=== PATIENT | female | born 1975 | race Caucasian/White ===

== ENCOUNTER 2017-06-08 17:55 | Emergency (ER) | payer SELFPAY ==
[~2017-06-08] VITALS: Ht 172.7 cm; Wt 65.3 kg
[2017-06-08 17:58] VITALS: TEMP 37; Ht 172.7 cm; Wt 65.3 kg
[2017-06-08] MEDS ORDERED: ONDANSETRON INJ 2 MG/ML 2 ML VIAL IV STA (18:24)
[2017-06-08] MEDS ORDERED: SODIUM CHLORIDE 0.9% 1000ML 1,000 ML IV STA (18:24)
--- NOTE | 2017-06-08 18:39 | EMERGENCY ROOM VISIT NOTE ---
History First contact with patient: 18:09 Chief Complaint: VOMITING Stated Complaint: VOMITING/LETHARGIC History of Present Illness The patient is a 41 year old female who presents to the Emergency Room with complaints of lethargy, nausea, vomiting 2 days. The symptoms seem to worsen first thing in the morning, and improves throughout the day. The patient states 2 days ago, she awoke and was getting ready for work, when at approximately 7 AM, she began experiencing nausea with vomiting. The patient states as the day went on, she was feeling better. Yesterday, she began experiencing the same symptoms. This morning, she awoke and was nauseated with vomiting again, that an approximately 11 AM the symptoms improved. She states she has been feeling extremely fatigued, and does have muscle and body aches. The patient has been trying Pepto-Bismol, Dramamine, Tums, and Tylenol for her symptoms. She states it feels like there is a knot in her stomach, but denies any abdominal pain. The patient has had normal bowel movements, denies constipation or diarrhea. She has had no urinary symptoms. The patient states her last menstrual cycle began on Sunday, and she is still bleeding. She does not believe that she could be , but is sexually active and is not on any control. The patient reports chills and a subjective fever yesterday. She denies any cough, wheezing, chest pain, upper respiratory infection symptoms, chest congestion, dyspnea. She states her symptoms do seem to be improving over the past 2 days. Review of Systems A complete 10 point review of systems was reviewed with the patient with pertinent positives and negatives as per history of present illness. All else were negative. Past Medical/Surgical History Medical Problems: (1) No Known Active Medical Problems Social History Smoking Status: Current Every Day Smoker Marital Status: single Occupation Status: employed Current/Historical Medications Scheduled Ondasetron Odt (Zofran Odt), 4 MG SL Q6H Physical Exam Vital Signs Date Time Temp Pulse Resp B/P (MAP) Pulse Ox O2 Delivery O2 Flow Rate FiO2 06/08/17 20:08 77 18 138/68 98 06/08/17 17:58 37.0 89 16 137/99 96 Room Air Physical Exam VITALS: Vitals are noted on the nurse's note and reviewed by myself. Vital signs stable. GENERAL: This is a 41-year-old white female, ill-appearing, but nontoxic, in no acute distress, nondiaphoretic, well-developed well-nourished. SKIN: The skin was without rashes, erythema, edema, or bruising. There is no tenting of the skin. Capillary reflex less than 2 seconds. HEAD: Normocephalic atraumatic. EARS: External auditory canals clear, tympanic membranes pearly tate without erythema or effusion bilaterally. EYES: Pupils equal round and reactive to light and accommodation. Conjunctivae without injection, sclerae without icterus. Extraocular movements intact. NOSE: Patent, turbinates without inflammation or discharge. No sinus tenderness. MOUTH: Mucous membranes moist. Tonsils are not enlarged. Pharynx without erythema or exudate. Uvula midline. Airway patent. Tongue does not deviate. NECK: Supple without nuchal rigidity. No lymphadenopathy. No thyromegaly. Cervical spine is nontender. No JVD. HEART: Regular rate and rhythm without murmurs gallops or rubs. LUNGS: Clear to auscultation bilaterally without wheezes, rales or rhonchi. No dullness to percussion. No retractions or accessory muscle use. ABDOMEN: Positive bowel sounds x 4. Normal tympanic percussion. Soft, nontender, without masses or organomegaly. Hyman sign negative. No guarding or rebound tenderness. MUSCULOSKELETAL: No muscle atrophy, erythema, or edema noted. Full range of motion without joint tenderness in all extremities. No tenderness to palpation. Normal gait. Strength 5/5 throughout. NEURO: Patient was alert and oriented to person place and time. Normal sensation to light and sharp touch. Deep tendon reflexes 2+ throughout. No focal neurological deficits. Medical Decision & Procedures ER Provider Diagnostic Interpretation: Urinalysis is positive for only blood. The patient is currently on her menstrual cycle. Urine test negative. CBC was without leukocytosis, anemia, thrombocytopenia. ER he was without significant renal or electrolyte abnormalities. The patient' s potassium was low at 2.9. Laboratory Results 06/08/17 18:39 Red Blood Count 4.12, Mean Corpuscular Volume 95.1, Mean Corpuscular Hemoglobin 34.2, Mean Corpuscular Hemoglobin Concent 36.0, Mean Platelet Volume 10.0, Neutrophils (%) (Auto) 48.3, Lymphocytes (%) (Auto) 44.8, Monocytes (%) (Auto) 6.6, Eosinophils (%) (Auto) 0.1, Basophils (%) (Auto) 0.1, Neutrophils # (Auto) 3.82, Lymphocytes # (Auto) 3.54, Monocytes # (Auto) 0.52, Eosinophils # (Auto) 0.01, Basophils # (Auto) 0.01 06/08/17 18:39 Test 06/08/17 18:39 White Blood Count 7.91 K/uL (4.8-10.8) Red Blood Count 4.12 M/uL (4.2-5.4) Hemoglobin 14.1 g/dL (12.0-16.0) Hematocrit 39.2 % (37-47) Mean Corpuscular Volume 95.1 fL (80-100) Mean Corpuscular Hemoglobin 34.2 pg (25-34) Mean Corpuscular Hemoglobin Concent 36.0 g/dl (32-36) Platelet Count 213 K/uL (130-400) Mean Platelet Volume 10.0 fL (7.4-10.4) Neutrophils (%) (Auto) 48.3 % Lymphocytes (%) (Auto) 44.8 % Monocytes (%) (Auto) 6.6 % Eosinophils (%) (Auto) 0.1 % Basophils (%) (Auto) 0.1 % Neutrophils # (Auto) 3.82 K/uL (1.4-6.5) Lymphocytes # (Auto) 3.54 K/uL (1.2-3.4) Monocytes # (Auto) 0.52 K/uL (0.11-0.59) Eosinophils # (Auto) 0.01 K/uL (0-0.5) Basophils # (Auto) 0.01 K/uL (0-0.2) RDW Standard Deviation 43.8 fL (36.4-46.3) RDW Coefficient of Variation 12.7 % (11.5-14.5) Immature Granulocyte % (Auto) 0.1 % Immature Granulocyte # (Auto) 0.01 K/uL (0.00-0.02) Anion Gap 5.0 mmol/L (3-11) Est Creatinine Clear Calc Drug Dose 147.9 ml/min Estimated GFR () 139.4 Estimated GFR (Non- 120.3 BUN/Creatinine Ratio 15.0 (10-20) Calcium Level 8.7 mg/dl (8.5-10.1) Medications Administered Medications (Trade) Dose Ordered Sig/Kurt Route Start Time Stop Time Status Last Admin Dose Admin Sodium Chloride 1,000 ml @ 999 mls/hr Q1H1M STAT IV 06/08/17 18:24 06/08/17 19:24 DC 06/08/17 18:48 999 MLS/HR Ondansetron HCl (Zofran Inj) 4 mg NOW STAT IV 06/08/17 18:24 06/08/17 18:26 DC 06/08/17 18:49 4 MG ED Course The patient was seen and evaluated as above. IV access obtained, labs drawn. The patient was given 1 L normal saline solution and 4 mg Zofran. The patient was reassessed. She was feeling better. Discharge instructions reviewed, and the patient was discharged home in good condition. Medical Decision This is a 41-year-old female patient who presents to the emergency department today complaining of vomiting, lethargy, and nausea for the past 2 days. The patient's states several of his coworkers are ill with similar symptoms. The patient states symptoms seem to be staying the same or not improving over the past 2 days. She denies chance of , however she is sexually active and does not use control. Labs were unrevealing for acute process, and test was negative. Urinalysis was positive for blood, however the patient is currently on her menstrual cycle. The patient's symptoms are consistent with acute gastroenteritis and did respond well to fluids and Zofran. She will be treated with anti-emetics and fluids at home.She was given return precautions and encouraged to treat her symptoms at home over the weekend and follow-up with her PCP early next week. Etiologies such as gastroenteritis, appendicitis, diverticulitis, obstruction, inflammatory bowel disease, renal colic, PUD, biliary pathology, pancreatitis, mesenteric ischemia, aortic pathology, infections, genitourinary, UTI, perforated viscus, as well as others were entertained. Medication Reconcilliation Current Medication List: was personally reviewed by me Blood Pressure Screening Patient's blood pressure: Normal blood pressure Impression Primary Impression: Gastroenteritis Departure Information Dispostion Home / Self-Care Condition GOOD Prescriptions Ondasetron Odt (ZOFRAN ODT) 4 Mg Tab 4 MG SL Q6H for Nausea, #6 TAB Prov: Rena Dudley PA-C 06/08/17 Referrals No Doctor, Assigned (PCP) Patient Instructions ED Gastroenteritis Viral, My [facility] Additional Instructions You have been treated in the Emergency Department your gastroenteritis. Laboratory results have ruled out any emergent causes for your abdominal pain which would warrant admission or surgery. You have been prescribed Zofran to be used for any nausea or vomiting. Take as prescribed. Potassium was low. Please consider an OTC supplement or high-potassium foods. For pain control, you can use the following rwje-dzq-nucneao medicines (if >12 yo): Ibuprofen(Motrin, Advil) may be used for fever or pain. Use 600mg every six hours as needed. Take with food. Avoid using more than 2400mg in a 24 hour period. Do not use 2400mg per day for more than three consecutive days without physician direction. Prolonged inappropriate use can lead to stomach upset or ulcers. (AND/OR) Acetaminophen(Tylenol) may be used for fever or pain. Use 1000mg every six hours as needed. Avoid using more than 3000mg in a 24 hour period. Drink plenty of water and stay well hydrated. As with any trip to the Emergency Department, you should follow-up with your Primary Care Provider from today's visit. Return to the emergency department if your symptoms persist despite treatment plan outlined above or if the following symptoms occur: increased fevers, chills , worsening nausea/vomiting, blood in your stool or urine.
[2017-06-08 19:00] LABS: BASO % 0.1 %; BASO ABS # 0.01 K/uL (0-0.2); EOS % 0.1 %; EOS ABS # 0.01 K/uL (0-0.5); HEMATOCRIT 39.2 % (37-47); HEMOGLOBIN 14.1 g/dL (12.0-16.0); IG# 0.01 K/uL (0.00-0.02); LYMPH % 44.8 %; LYMPH ABS # 3.54 K/uL (1.2-3.4); MEAN CELL VOLUME 95.1 fL (80-100); MEAN CORPUSCULAR HEMOGLOBIN 34.2 pg (25-34); MONO % 6.6 %; MONO ABS # 0.52 K/uL (0.11-0.59); NEUT % 48.3 %; NEUT ABS # 3.82 K/uL (1.4-6.5); PLATELET COUNT 213 K/uL (130-400); RED CELL DISTRIBUTION WIDTH CV 12.7 % (11.5-14.5); RED CELL DISTRIBUTION WIDTH SD 43.8 fL (36.4-46.3); WHITE BLOOD COUNT 7.91 K/uL (4.8-10.8)
[2017-06-08 19:30] LABS: CALCIUM 8.7 mg/dl (8.5-10.1); CREATININE 0.51 mg/dl (0.60-1.20); POTASSIUM 2.9 mmol/L (3.5-5.1)
[2017-06-08] MEDS ORDERED: ONDA4TAB10 SL (19:45)
[2017-06-08 20:08] VITALS: BP 138/68; PULSE 77; O2SAT 98
== END 2017-06-08 20:09 | disposition home or self-care (01) ==
LOC: C.EDB 17:58
DX: K52.9 Noninfective gastroenteritis and colitis, unspecified (principal); F17.200 Nicotine dependence, unspecified, uncomplicated

== ENCOUNTER 2019-11-27 17:42 | Inpatient (IN) ==
--- NOTE | 2019-11-27 18:04 | Emergency Department Note ---
Impression & Plan DVT (deep venous thrombosis), Encounter for smoking cessation counseling, Bilateral edema of lower extremity ED Provider Note NAME: BRAYDEN ROBLES AGE: 44 SEX: F : 1975 ARRIVES VIA: Walk-In INFORMANT: Patient, ED PROVIDER(S): Fareed Aparicio MD Chief Complaint: DrEliana referral abnormal ultrasound HPI: Patient was referred here due to concern for abnormal ultrasounds. Reportedly the patient does have nonocclusive DVTs in the proximal groin. The patient states that she did getting the ultrasound due to concern for worsening lower extremity swelling. The patient states she noticed this about 3 weeks ago. The patient did have associated pain in the ankles. The patient is on Depo-Provera but not on estrogen replacement therapy. The patient does relate she had a recent trip to [place] by car. The patient does believe that she got out of the car. No recent hospitalizations surgeries or procedures. The patient is a smoker. Occasional alcohol use. The patient does also use marijuana occasionally. The patient is recently being prescribed antibiotics for a possible pneumonia. The patient currently denies any shortness of breath or chest pain. Patient denies any history of cancer or unexplained weight loss. Patient denies COVID symptoms. ROS: See HPI for pertinent positives and negatives. A total of 10 systems were reviewed and otherwise negative. Past medical history: See below Surgical history: See below Social history: See below Physical Exam: GENERAL: No apparent distress, nontoxic, wearing a mask. Normal conjunctiva. PERRL, no anisocoria and EOM's grossly intact w/o pain. NECK: Supple, no nuchal rigidity, no adenopathy, non-tender. No signs of meningismus. LUNGS: Wheezes throughout. Normal chest wall mechanics. No tachypnea noted. HEART: NSR, no MRG. ABDOMEN: Abdomen soft, non-tender, normo-active bowel sounds, no masses, no rebound or guarding. BACK: No CVA TTP. SKIN: No rashes and no bruising. UPPER EXTREMITIES: Upper extremities are grossly normal. LOWER EXTREMITIES: 2+ lower extremity edema, symmetric, redness noted, compartments are soft no crepitus good range of motion at the hip knee and ankle. DP pulses present bilaterally. NEURO EXAM: A&O x3, cranial nerves II-XII grossly intact, normal speech, moves all 4 extremities on command w/o issue. Differential diagnoses: DVT, musculoskeletal, infection, joint effusion, trauma, lymphedema, idiopathic, CHF, as well as other pathologies. Course: Patient was seen and evaluated the bedside. Full history physical exam was performed. EKG: Indication: DVTs Sinus tachycardia, rate of 102, normal intervals, normal axis, Q waves anteriorly T wave inversion in V3, flattening in V2, no T wave inversions in the lateral or high lateral leads. Imaging Studies: Radiology results as stated below per my review in the radiologist's interpretation: Vascular duplex venous lower extremity bilateral November 27, 2019. Outpatient ultrasound shows bilateral nonocclusive DVTs. Flow defects in the proximal deep femoral vein where it joins the common femoral appears to be nonocclusive which is on the right. Patient does have nonocclusive proximal femoral vein DVT located on the left. Cardiac monitoring: An order was placed for continuous cardiac monitoring. The monitor shows a rate of 80 with sinus rhythm. XR chest 1V portable CLINICAL HISTORY: weakness COMPARISON STUDY: No previous studies for comparison. FINDINGS: Lung volumes are normal. There is no pneumothorax or pleural effusion. There are suspected small calcified nodules within the lungs. In addition, there is lower lung interstitial thickening and hazy airspace opacity. There is no lobar consolidation. Cardiac size is normal. Mediastinal contours are unremarkable. IMPRESSION: Lower lung interstitial thickening and possible associated hazy opacities. The findings are age indeterminate and could reflect an infectious process or less likely pulmonary edema or interstitial lung disease. Radiographic follow up is recommended. ACT 112: Negative or not required by law. Electronically signed by: Yuriy Morton M.D. 11/27/2019 6:52 PM Dictated: 11/27/191849 Transcribed: 11/27/191849 MDM: [facility] to concern for proximal DVTs. They were reportedly nonocclusive. I did obtain report to review them myself. Patient did have blood work completed along with a chest x-ray. Patient does have significant lower extremity swelling. Patient is currently being treated for pneumonia and is on antibiotics. Patient does have mild white count of 16,000. Hemoglobin is normal. Platelet count also normal. Chest x-ray shows possible hazy opacities. The patient is currently being treated for pneumonia. The patient does have a white count. Given the patient's proximal DVTs even though they are nonocclusive in 3 weeks if associated symptoms smoking history and concomitant pneumonia believe the patient would benefit from inpatient treatment of this time. Heparin was ord ered. Patient was counseled on smoking cessation. I counseled patient on smoking cessation for 3 minutes. Treatment options discussed and resources provided. Patient was receptive. Critical Care: I have personally spent 42 minutes of critical care time in direct management of this patient. This includes bedside care, interpretation of diagnostic studies, and testing, discussion with consultants, patient, and family members, and other require inpatient management activities. This 42 minutes is in excess of all separately billable procedures. Past Med/Surg History Medical History DVT (deep venous thrombosis) Surgical History No pertinent past surgical history Social History Preferred Language: Irish Feels Safe at Home: Yes Smoking Status: Current every day smoker Allergies Allergies Allergy/AdvReac Type Severity Reaction Status Date / Time No Known Allergies Allergy Verified 11/27/19 19:22 Home Meds Home Medications Medication Instructions Recorded Confirmed albuterol sulfate 2 puff INHALATION Q4 PRN 11/27/19 11/27/19 albuterol sulfate 2.5 mg INHALATION Q4 PRN 11/27/19 11/27/19 dextromethorphan polistirex 10 ml PO Q12H PRN 11/27/19 11/27/19 [Delsym 12 hour] guaifenesin [Mucinex] 0 mg PO DAILY PRN 11/27/19 11/27/19 ibuprofen [Advil] 400 mg PO Q6H PRN 11/27/19 11/27/19 levofloxacin [Levaquin] 500 mg PO DAILY 11/27/19 11/27/19 medroxyprogesterone [Depo-Provera] 0 mg IM UD 11/27/19 11/27/19 Results & Data (ED) Vital Signs Vital Signs - 24 hr 11/27/19 17:54 11/27/19 18:14 11/27/19 18:39 Temperature 37.2 C Temperature Source Oral Pulse Rate 80 103 H Pulse Rate from SpO2 Sensor Respiratory Rate 18 15 Respiratory Effort / Characteristics Non-Labored Spontaneous Respiratory Depth Normal Respiratory Pattern Regular Blood Pressure 126/81 Blood Pressure Mean 96 Blood Pressure Position Sitting Pulse Oximetry 96 96 97 Oxygen Delivery Method Room Air Room Air Room Air Sepsis Recent Fever Within 48 Hours No Sepsis New/Unexplained Change in Mental Status No Sepsis Action Taken by Nursing No Action Required 11/27/19 19:34 Temperature Temperature Source Pulse Rate 107 H Pulse Rate from SpO2 Sensor 107 H Respiratory Rate 21 Respiratory Effort / Characteristics Respiratory Depth Respiratory Pattern Blood Pressure 110/70 Blood Pressure Mean 75 Blood Pressure Position Pulse Oximetry 100 Oxygen Delivery Method Room Air Sepsis Recent Fever Within 48 Hours Sepsis New/Unexplained Change in Mental Status Sepsis Action Taken by [facility] Medications Current Medication List: was personally reviewed by me Laboratory Data Attestation: I reviewed the patient's lab results. Result diagrams: 11/27/19 18:34 11/27/19 18:34 Lab Results 11/27/19 11/27/19 11/27/19 Range/Units 18:34 18:34 18:34 WBC 16.48 H (4.8-10.8) K/uL RBC 3.54 L (4.2-5.4) M/uL Hgb 12.2 (12.0-16.0) g/dL Hct 36.4 L (37-47) % MCV 102.8 H (80-100) fL MCH 34.5 H (25-34) pg MCHC 33.5 (32-36) g/dL RDW Std Deviation 54.6 H (36.4-46.3) fL RDW Coeff of Omi 14.4 (11.5-14.5) % Plt Count 258 (130-400) K/uL MPV 9.9 (7.4-10.4) fL Neutrophils % (Manual) 33.9 % Lymphocytes % (Manual) 11.3 % Reactive Lymphs % (Man) 46.1 % Monocytes % (Manual) 6.1 % Eosinophils % (Manual) 1.7 % Myelocytes % (Man) 0.9 % Neutrophils # (Manual) 5.59 (1.4-6.5) K/uL Total Absolute Neuts 5.59 (1.4-6.5) K/uL Lymphocytes # (Manual) 1.86 (1.2-3.4) K/uL Reactive Lymphs # 7.60 K/uL Total Abs Lymphocytes 9.46 H (1.2-3.4) K/uL Monocytes # (Manual) 1.01 H (0.11-0.59) K/uL Eosinophils # (Manual) 0.28 (0-0.5) K/uL Myelocytes # (Manual) 0.15 H (0-0) K/uL Toxic Vacuolation 1+ PT 12.8 H (9.0-12.0) Seconds INR 1.2 H (0.9-1.1) Sodium 134 L (136-145) mmol/L Potassium 3.6 (3.5-5.1) mmol/L Chloride 104 (98-107) mmol/L Carbon Dioxide 23 (21-32) mmol/L Anion Gap 8.0 (3-11) BUN 8 (7-18) mg/dl Creatinine 0.40 L (0.6-1.2) mg/dl Est Cr Clr Drug Dosing 163.2 ml/min Est GFR ( Amer) 147.9 Est GFR (Non-Af Amer) 127.6 BUN/Creatinine Ratio 19.5 (10-20) Glucose 84 (70-99) mg/dl Calcium 7.4 L (8.5-10.1) mg/dl Phosphorus 3.2 (2.5-4.9) mg/dl Magnesium 1.7 L (1.8-2.4) mg/dl Total Bilirubin 0.5 (0.2-1) mg/dl AST 41 H (15-37) U/L ALT 25 (12-78) U/L Alkaline Phosphatase 208 H (45-117) U/L NT-Pro-B Natriuret Pep 225 (0-450) pg/ml Total Protein 5.7 L (6.4-8.2) gm/dl Albumin 1.7 L (3.4-5.0) gm/dl Globulin 4.0 (2.5-4.0) gm/dl Albumin/Globulin Ratio 0.4 L (0.9-2) Procalcitonin (0-0.5) ng/ml TSH 1.020 (0.300-4.500) uIu/ml 11/27/19 Range/Units 18:34 WBC (4.8-10.8) K/uL RBC (4.2-5.4) M/uL Hgb (12.0-16.0) g/dL Hct (37-47) % MCV (80-100) fL MCH (25-34) pg MCHC (32-36) g/dL RDW Std Deviation (36.4-46.3) fL RDW Coeff of Omi (11.5-14.5) % Plt Count (130-400) K/uL MPV (7.4-10.4) fL Neutrophils % (Manual) % Lymphocytes % (Manual) % Reactive Lymphs % (Man) % Monocytes % (Manual) % Eosinophils % (Manual) % Myelocytes % (Man) % Neutrophils # (Manual) (1.4-6.5) K/uL Total Absolute Neuts (1.4-6.5) K/uL Lymphocytes # (Manual) (1.2-3.4) K/uL Reactive Lymphs # K/uL Total Abs Lymphocytes (1.2-3.4) K/uL Monocytes # (Manual) (0.11-0.59) K/uL Eosinophils # (Manual) (0-0.5) K/uL Myelocytes # (Manual) (0-0) K/uL Toxic Vacuolation PT (9.0-12.0) Seconds INR (0.9-1.1) Sodium (136-145) mmol/L Potassium (3.5-5.1) mmol/L Chloride (98-107) mmol/L Carbon Dioxide (21-32) mmol/L Anion Gap (3-11) BUN (7-18) mg/dl Creatinine (0.6-1.2) mg/dl Est Cr Clr Drug Dosing ml/min Est GFR ( Amer) Est GFR (Non-Af Amer) BUN/Creatinine Ratio (10-20) Glucose (70-99) mg/dl Calcium (8.5-10.1) mg/dl Phosphorus (2.5-4.9) mg/dl Magnesium (1.8-2.4) mg/dl Total Bilirubin (0.2-1) mg/dl AST (15-37) U/L ALT (12-78) U/L Alkaline Phosphatase (45-117) U/L NT-Pro-B Natriuret Pep (0-450) pg/ml Total Protein (6.4-8.2) gm/dl Albumin (3.4-5.0) gm/dl Globulin (2.5-4.0) gm/dl Albumin/Globulin Ratio (0.9-2) Procalcitonin 0.25 (0-0.5) ng/ml TSH (0.300-4.500) uIu/ml Administered Medications Heparin Sodium/Dextrose (Heparin Sodium/Dextrose) 25,000 units in 500 mls @ 22 mls/hr IV .[id number] MARY; Protocol Stop: 12/27/19 19:14 Last Admin: 11/27/19 19:31 Dose: 1,100 units/hr, 22 mls/hr Documented by: [id number] Cosigned by: [id number] Ioversol (Optiray 320 125ml) 120 ml IV ONCE PRN PRN Reason: Interaction Checking Stop: 12/01/19 20:56 Last Admin: 11/27/19 20:58 Dose: 120 ml Documented by: [id number] Discontinued Medications Calcium Carbonate (Tums) 1,500 mg PO NOW STA Stop: 11/27/19 19:14 Last Admin: 11/27/19 19:30 Dose: 1,500 mg Documented by: [id number] Heparin Sodium/Dextrose () 1 ea IV ONE ONE; Protocol Stop: 11/27/19 19:13 Last Admin: 11/27/19 20:06 Dose: Not Given Documented by: [id number] Parenteral Electrolytes (Normosol-R) 500 mls @ 500 mls/hr IV .Q1H ONE Stop: 11/27/19 20:59 Last Infusion: 11/27/19 21:16 Dose: 0 mls/hr Documented by: [id number] Admin: 11/27/19 19:48 Dose: 500 mls/hr Documented by: [id number] Magnesium Oxide (Mag-Ox) 800 mg PO NOW STA Stop: 11/27/19 19:14 Last Admin: 11/27/19 19:30 Dose: 800 mg Documented by: [id number] Potassium Chloride (Klor-Con M20) 40 meq PO NOW STA Stop: 11/27/19 19:30 Last Admin: 11/27/19 19:49 Dose: 40 meq Documented by: [id number] Discharge Plan Visit Data Chief Complaint: Referred by Doctor Stated Complaint: BOTH LEGS SWOLLEN, BLOTS IN BOTH LEGS ED Provider: Fareed Aparicio Discharge Problem: DVT (deep venous thrombosis), Encounter for smoking cessation counseling, Bilateral edema of lower extremity Discharge Instructions Interventions: ED Discharge Assessment Last Done: 11/27/19 20:45 Discharge Problem: DVT (deep venous thrombosis) Qualifiers: DVT location: lower extremity Affected thrombotic vein of extremity: femoral Chronicity: acute Laterality: bilateral Qualified Code(s): I82.413 - Acute embolism and thrombosis of femoral vein, bilateral
[2019-11-27 18:41] LABS: Hematocrit (blood only) 36.4 % (37-47); Hemoglobin 12.2 g/dL (12.0-16.0); Mean Corpuscular Hemoglobin 34.5 pg (25-34); Mean Corpuscular Hgb Conc 33.5 g/dL (32-36); Mean Corpuscular Volume 102.8 fL (80-100); Mean Platelet Volume 9.9 fL (7.4-10.4); Platelet Count 258 K/uL (130-400); RDW Coefficient of Variation 14.4 % (11.5-14.5); RDW Standard Deviation 54.6 fL (36.4-46.3); Red Blood Count 3.54 M/uL (4.2-5.4); White Blood Count 16.48 K/uL (4.8-10.8)
--- NOTE | 2019-11-27 18:54 | XRay Report ---
XR chest 1V portable CLINICAL HISTORY: weakness COMPARISON STUDY: No previous studies for comparison. FINDINGS: Lung volumes are normal. There is no pneumothorax or pleural effusion. There are suspected small calcified nodules within the lungs. In addition, there is lower lung interstitial thickening an d hazy airspace opacity. There is no lobar consolidation. Cardiac size is normal. Mediastinal contour s are unremarkable. IMPRESSION: Lower lung interstitial thickening and possible associated hazy opacities. The findings are age indeterminate and could reflect an infectious process or less likely pulmonary edema or inter stitial lung disease. Radiographic follow up is recommended. ACT 112: Negative or not required by law. Electronically signed by: Yuriy Morton M.D. 11/27/2019 6:52 PM
[2019-11-27 19:00] LABS: Alanine Aminotransferase 25 U/L (12-78); Albumin Level 1.7 gm/dl (3.4-5.0); Aspartate Aminotransferase 41 U/L (15-37); BUN Creatinine Ratio 19.5 (10-20); Blood Urea Nitrogen 8 mg/dl (7-18); Calcium 7.4 mg/dl (8.5-10.1); Carbon Dioxide 23 mmol/L (21-32); Chloride 104 mmol/L (98-107); Creatinine Clr Calc Pharmacy 163.2 ml/min; Est GFR (African American) 147.9; Est GFR (Non-African American) 127.6; Glucose 84 mg/dl (70-99); Magnesium 1.7 mg/dl (1.8-2.4); Potassium 3.6 mmol/L (3.5-5.1); Sodium 134 mmol/L (136-145)
[2019-11-27 19:03] LABS: INR 1.2 (0.9-1.1); Prothrombin Time 12.8 Seconds (9.0-12.0)
[2019-11-27 19:11] LABS: Albumin Globulin Ratio 0.4 (0.9-2); Alkaline Phosphatase 208 U/L (45-117); Bilirubin,Total 0.5 mg/dl (0.2-1); NT Pro B Type Natriuretic Pept 225 pg/ml (0-450); Phosphorus 3.2 mg/dl (2.5-4.9); Total Protein 5.7 gm/dl (6.4-8.2)
[2019-11-27] MEDS ORDERED: Heparin IV Standard *NO* Bolus IV ONE (19:12)
[2019-11-27] MEDS ORDERED: MAGNESIUM OXIDE 400 MG TAB PO STA (19:13)
[2019-11-27] MEDS ORDERED: CALCIUM CARBONATE 500 MG CHEWABLE TAB PO STA (19:13)
[2019-11-27 19:23] LABS: ALC (manual) 9.46 K/uL (1.2-3.4); ANC (manual) 5.59 K/uL (1.4-6.5); Eosinophils # (manual) 0.28 K/uL (0-0.5); Eosinophils % (manual) 1.7 %; Lymphocytes # (manual) 1.86 K/uL (1.2-3.4); Lymphocytes % (manual) 11.3 %; Monocytes # (manual) 1.01 K/uL (0.11-0.59); Monocytes % (manual) 6.1 %; Myelocytes # (manual) 0.15 K/uL (0-0); Myelocytes % (manual) 0.9 %; Neutrophils # (manual) 5.59 K/uL (1.4-6.5); Neutrophils % (manual) 33.9 %; Reactive Lymphocytes % (manual) 46.1 %; Toxic Vacuolation 1+
[2019-11-27] MEDS ORDERED: POTASSIUM CHLORIDE 20 MEQ TABCR PO STA (19:29)
[2019-11-27] MEDS: HEPARIN SODIUM/DEXTROSE 25,000 UNITS/500 ML BAG IV SCH (19:31)
[2019-11-27] MEDS ORDERED: NORMOSOL-R 500 ML IV ONE (20:00)
--- NOTE | 2019-11-27 20:12 | History & Physical Report ---
Date of Service November 27, 2019 Assessment & Plan (1) Severe sepsis: SIRS plus lactic acid elevation ? Secondary to RLE cellulitis Bilateral LE DVT First episode ? Secondary to out-of-town car travel from last month Lymphadenopathy on CT chest Complicated bronchitis, improved on outpatient Levaquin Rx Ongoing tobacco abuse Medical telemetry Cultures, Doxycycline for cellulitis IVF, follow lactic acid IV heparin, defer discussion regarding home oral anticoagulation agent between AM provider and patient. Follow official CT chest results RE lymphadenopathy Nicotine patch PRN DVT prophylaxis. IV heparin Full code Text document was generated using [employer] voice recognition software. It may contain grammatical or spelling errors. Kindly contact undersigned for clarification of any documentation item in question. History of Present Illness Chief Complaint: leg clots on ultrasound Primary Care Provider: NO PCP History obtained from patient and records. Medical history significant for ongoing tobacco abuse. Last month, patient traveled by car to [place] from [place] ([address] as per patient). Junky cough symptoms at time of departure which patient attributed to allergies. No chest pain, no S OB. 3 weeks ago after returning home from her trip, patient noted bilateral leg swelling and exertional shortness of breath. No chest pain. Persistent cough symptoms with fever at home. No aspiration. No unusual abdominal pain. Patient seen at [facility] urgent care center last week. Right upper lung field crackles noted on exam as per note. COVID-19 testing was negative. Chest x-ray not done outpatient. Levaquin course started for possible pneumonia. Cough symptoms improving as per patient. Bilateral leg swelling noted to be worse with redness more on the right. Patient seen on follow-up at outpatient [facility] facility today. Outpatient LE venous Dopplers read as bilateral nonocclusive DVTs. Patient directed to the ER by outpatient provider. IV heparin started at the ER. No prior history of blood clots as per patient. Medical History as above Surgical History : Dental surgery Family History : blood clots, lung cancer, throat cancer Personal/Social history : Half pack daily, no EtOH intake, deli cook Allergies Allergy/AdvReac Type Severity Reaction Status Date / Time No Known Allergies Allergy Verified 11/27/19 19:22 Home Medications Home Medications Medication Instructions Recorded Confirmed Type albuterol sulfate 2 puff INHALATION Q4 PRN 11/27/19 11/27/19 History albuterol sulfate 2.5 mg INHALATION Q4 PRN 11/27/19 11/27/19 History dextromethorphan polistirex 10 ml PO Q12H PRN 11/27/19 11/27/19 History [Delsym 12 hour] guaifenesin [Mucinex] 0 mg PO DAILY PRN 11/27/19 11/27/19 History ibuprofen [Advil] 400 mg PO Q6H PRN 11/27/19 11/27/19 History levofloxacin [Levaquin] 500 mg PO DAILY 11/27/19 11/27/19 History medroxyprogesterone [Depo-Provera] 0 mg IM UD 11/27/19 11/27/19 History Past Med/Surg History Medical History DVT (deep venous thrombosis) Surgical History No pertinent past surgical history Social History Preferred Language: Pashto Communication Ability: Effective [employer] Chair Required: No Beliefs That Will Affect Care: None Current Living Situation: Significant Other Feels Safe at Home: Yes Safety Concerns: Feels Safe At This Time Smoking Status: Current every day smoker Tobacco Type: cigarettes and cigars ; Do You Dip or Chew Tobacco: No ; Second Hand Exposure: Yes ; Tobacco Cessation Education Requested by Patient: No Hx Alcohol Use: Yes Alcohol type: hard liquor Hx Substance Use: Yes substance use type: marijuana Last Used Substance: Hours (ago) Review of Systems Review of Systems: As per HPI, all 10 systems reviewed, all other ROS negative Physical Exam Physical Exam: GENERAL: Slightly uncomfortable, no respiratory distress, slightly anxious SKIN: Normal color, warm HEENT: Raysal palpebral conjunctivae, no ptosis, dry buccal mucosa NECK : Supple, no tenderness CHEST : Decreased breath sounds, occasional wheeze right lower lobe which clear on coughing. no tenderness HEART : Tachycardic, no obvious murmurs ABDOMEN: Some distention, nontender EXTREMITIES : Bilateral LE swelling and tenderness, RLE greater than LLE erythema, no other conspicuous deformities noted NEUROLOGIC : Coherent, no facial asymmetry, no other gross focality Results & Data Results & Data ([facility]) Vital Signs (Past 12 Hours) Vital Signs Temp Pulse Resp BP Pulse Ox 11/27/19 19:34 107 H 21 110/70 100 11/27/19 18:39 103 H 15 97 11/27/19 18:14 96 11/27/19 17:54 37.2 C 80 18 126/81 96 Laboratory Results Laboratory Results WBC 16.48 K/uL (4.8-10.8) H 11/27/19 18:34 RBC 3.54 M/uL (4.2-5.4) L 11/27/19 18:34 Hgb 12.2 g/dL (12.0-16.0) 11/27/19 18:34 Hct 36.4 % (37-47) L 11/27/19 18:34 MCV 102.8 fL (80-100) H 11/27/19 18:34 MCH 34.5 pg (25-34) H 11/27/19 18:34 MCHC 33.5 g/dL (32-36) 11/27/19 18:34 RDW Std Deviation 54.6 fL (36.4-46.3) H 11/27/19 18:34 RDW Coeff of Omi 14.4 % (11.5-14.5) 11/27/19 18:34 Plt Count 258 K/uL (130-400) 11/27/19 18:34 MPV 9.9 fL (7.4-10.4) 11/27/19 18:34 Neutrophils % (Manual) 33.9 % 11/27/19 18:34 Lymphocytes % (Manual) 11.3 % 11/27/19 18:34 Reactive Lymphs % (Man) 46.1 % 11/27/19 18:34 Monocytes % (Manual) 6.1 % 11/27/19 18:34 Eosinophils % (Manual) 1.7 % 11/27/19 18:34 Myelocytes % (Man) 0.9 % 11/27/19 18:34 Neutrophils # (Manual) 5.59 K/uL (1.4-6.5) 11/27/19 18:34 Total Absolute Neuts 5.59 K/uL (1.4-6.5) 11/27/19 18:34 Lymphocytes # (Manual) 1.86 K/uL (1.2-3.4) 11/27/19 18:34 Reactive Lymphs # 7.60 K/uL 11/27/19 18:34 Total Abs Lymphocytes 9.46 K/uL (1.2-3.4) H 11/27/19 18:34 Monocytes # (Manual) 1.01 K/uL (0.11-0.59) H 11/27/19 18:34 Eosinophils # (Manual) 0.28 K/uL (0-0.5) 11/27/19 18:34 Myelocytes # (Manual) 0.15 K/uL (0-0) H 11/27/19 18:34 Toxic Vacuolation 1+ 11/27/19 18:34 PT 12.8 Seconds (9.0-12.0) H 11/27/19 18:34 INR 1.2 (0.9-1.1) H 11/27/19 18:34 Sodium 134 mmol/L (136-145) L 11/27/19 18:34 Potassium 3.6 mmol/L (3.5-5.1) 11/27/19 18:34 Chloride 104 mmol/L (98-107) 11/27/19 18:34 Carbon Dioxide 23 mmol/L (21-32) 11/27/19 18:34 Anion Gap 8.0 (3-11) 11/27/19 18:34 BUN 8 mg/dl (7-18) 11/27/19 18:34 Creatinine 0.40 mg/dl (0.6-1.2) L 11/27/19 18:34 Est Cr Clr Drug Dosing 163.2 ml/min 11/27/19 18:34 Est GFR ( Amer) 147.9 11/27/19 18:34 Est GFR (Non-Af Amer) 127.6 11/27/19 18:34 BUN/Creatinine Ratio 19.5 (10-20) 11/27/19 18:34 Glucose 84 mg/dl (70-99) 11/27/19 18:34 Calcium 7.4 mg/dl (8.5-10.1) L 11/27/19 18:34 Phosphorus 3.2 mg/dl (2.5-4.9) 11/27/19 18:34 Magnesium 1.7 mg/dl (1.8-2.4) L 11/27/19 18:34 Total Bilirubin 0.5 mg/dl (0.2-1) 11/27/19 18:34 AST 41 U/L (15-37) H 11/27/19 18:34 ALT 25 U/L (12-78) 11/27/19 18:34 Alkaline Phosphatase 208 U/L (45-117) H 11/27/19 18:34 NT-Pro-B Natriuret Pep 225 pg/ml (0-450) 11/27/19 18:34 Total Protein 5.7 gm/dl (6.4-8.2) L 11/27/19 18:34 Albumin 1.7 gm/dl (3.4-5.0) L 11/27/19 18:34 Globulin 4.0 gm/dl (2.5-4.0) 11/27/19 18:34 Albumin/Globulin Ratio 0.4 (0.9-2) L 11/27/19 18:34 Procalcitonin 0.25 ng/ml (0-0.5) 11/27/19 18:34 TSH 1.020 uIu/ml (0.300-4.500) 11/27/19 18:[address] chest initial read: No pulmonary emboli. Subcarinal lymphadenopathy and bilateral hilar lymphadenopathy. Borderline axillary lymphadenopathy with several lymph nodes measuring 12 mm. Mild diffuse bronchial wall thickening suggesting bronchitis. No airspace infiltrate is seen. Limited images of upper abdomen are unremarkable. EKG as per my interpretation: Rate 105, sinus tachycardia, normal axis, T wave abnormality septal leads, low voltage
[2019-11-27] MEDS ORDERED: DOXYCYCLINE HYCLATE 100 MG in DEXTROSE 5% 100 ML IV STA (20:17)
[2019-11-27] MEDS ORDERED: OPTIRAY 320 125ml IV PRN (20:57)
[2019-11-27] MEDS ORDERED: XOPENEX/ATROVENT 1.25mg/0.5MG NEB COMBO NEB PRN (21:15)
[2019-11-27] MEDS ORDERED: TRAMADOL HCL 50 MG TABLET PO PRN (21:15)
[2019-11-27] MEDS ORDERED: LORazepam 0.25 MG/0.5 ML VIAL IV PRN (21:15)
[2019-11-27] MEDS ORDERED: LEVALBUTEROL 1.25MG/0.5ML NEB INH PRN (21:15)
[2019-11-27] MEDS ORDERED: ACETAMINOPHEN 325 MG TAB PO PRN (21:15)
[2019-11-27] MEDS ORDERED: PROMETHAZINE HCL 12.5 MG in SODIUM CHLORIDE 0.9% 50 ML IV PRN (21:15)
[2019-11-27] MEDS ORDERED: NORMOSOL-R 1,000 ML IV ONE ×2 (21:15→22:11)
[2019-11-27] MEDS ORDERED: KETOROLAC TROMETHAMINE 15 MG/ML VIAL IV PRN (21:15)
[2019-11-27] MEDS ORDERED: IPRATROPIUM BROMIDE NEB SOLN 0.02% 2.5 ML VIAL INH PRN (21:15)
[2019-11-27 22:01] LABS: Troponin I < 0.015 ng/ml (0-0.045)
[2019-11-28 01:04] LABS: Hematocrit (blood only) 34.2 % (37-47); Hemoglobin 11.1 g/dL (12.0-16.0); Mean Corpuscular Hemoglobin 33.9 pg (25-34); Mean Corpuscular Hgb Conc 32.5 g/dL (32-36); Mean Corpuscular Volume 104.6 fL (80-100); Mean Platelet Volume 9.9 fL (7.4-10.4); Platelet Count 250 K/uL (130-400); RDW Coefficient of Variation 14.2 % (11.5-14.5); RDW Standard Deviation 54.5 fL (36.4-46.3); Red Blood Count 3.27 M/uL (4.2-5.4); White Blood Count 14.25 K/uL (4.8-10.8)
[2019-11-28 01:20] LABS: BUN Creatinine Ratio 19.5 (10-20); Calcium 6.9 mg/dl (8.5-10.1); Creatinine Clr Calc Pharmacy 163.2 ml/min; Est GFR (African American) 147.9; Est GFR (Non-African American) 127.6; Magnesium 1.8 mg/dl (1.8-2.4); Potassium 3.7 mmol/L (3.5-5.1)
[2019-11-28 01:24] LABS: Partial Thromboplastin Ratio 1.8
[2019-11-28 01:26] LABS: Partial Thromboplastin Time 49.3 Seconds (21.0-31.0)
[2019-11-28 01:56] LABS: ALC (manual) 8.92 K/uL (1.2-3.4); ANC (manual) 4.72 K/uL (1.4-6.5); Eosinophils # (manual) 0.37 K/uL (0-0.5); Eosinophils % (manual) 2.6 %; Lymphocytes # (manual) 4.22 K/uL (1.2-3.4); Lymphocytes % (manual) 29.6 %; Monocytes # (manual) 0.24 K/uL (0.11-0.59); Monocytes % (manual) 1.7 %; Neutrophils # (manual) 4.72 K/uL (1.4-6.5); Neutrophils % (manual) 33.1 %; Polychromasia 1+
[2019-11-28] MEDS ORDERED: NORMOSOL-R 1,000 ML IV ONE ×2 (02:07→06:00)
[2019-11-28] MEDS ORDERED: NORMOSOL-R 1,000 ML IV SCH ×2 (03:00)
[2019-11-28 05:55] LABS: Partial Thromboplastin Ratio 1.9
[2019-11-28 06:29] LABS: Partial Thromboplastin Time 52.1 Seconds (21.0-31.0)
--- NOTE | 2019-11-28 08:02 | CT Scan Report ---
CHEST CTA for PULMONARY ARTERIES CT DOSE: 239.05 mGy.cm HISTORY: Shortness of breath. TECHNIQUE: Multiaxial CT images of the chest were performed following the intravenous administration of contrast to evaluate the pulmonary arteries. Maximal intensity projection images were also obtaine d. A dose lowering technique was utilized adhering to the principles of ALARA. COMPARISON STUDY: None. FINDINGS: Normal caliber thoracic aorta with no evidence for dissection. The heart is normal in size. Trace pericardial and trace left pleural effusions. A few small scattered filling defects seen withi n the bilateral lower lobe subsegmental pulmonary arteries. This is best seen within the right lower lobe on image 82. Findings are consistent with small pulmonary emboli. No suspicious lytic or blastic osseous lesions. The liver and spleen appear enlarged but are only partially imaged on this study. T he adrenal glands are unremarkable. Normal caliber esophagus. Prominent bilateral axillary lymph node s. Mild mediastinal and bilateral hilar lymphadenopathy. Dominant subcarinal lymph node measures 2.7 x 1.8 cm. No pneumothorax. A few small biapical blebs are noted. Calcified granuloma within the lingu la. Mild central bronchial wall thickening. There is also mild diffuse interstitial thickening. Mild diffuse groundglass appearance to the lungs. IMPRESSION: 1. A few small bilateral subsegmental pulmonary emboli. 2. Mild mediastinal and bilateral hilar lymphadenopathy. The axillary lymph nodes are also prominent. This is nonspecific and could be due to a neoplastic or inflammatory process such as sarcoidosis giv en the chronic interstitial thickening within the lungs. 3. Mild diffuse interstitial thickening with faint groundglass appearance within the lungs. Again, th is could be due to sarcoidosis or a low-grade infectious/inflammatory process. 4. Findings were called/faxed to the referring physician following dictation. ACT 112: Negative or not required by law. Electronically signed by: Brice Wagner M.D. 11/28/2019 8:01 AM
[2019-11-28] MEDS: DOXYCYCLINE HYCLATE 100 MG CAP PO SCH ×2 (08:56→20:34)
[2019-11-28 10:54] LABS: Appearance Urine Clear (Clear); Bacteria Urine Automated 1+ (Negative); Bilirubin Urine Negative (Negative); Blood Urine Negative (Negative); Color Urine Dark Yellow; Epithelial Cell Urine Auto >30 /lpf (0-5); Glucose Urine UA Negative (Negative); Ketones Urine Negative (Negative); Leukocyte Esterase Urine Negative (Negative); Nitrite Urine Negative (Negative); Protein Urine Trace (Negative); RBC Urine Automated 0-4 /hpf (0-4); Specific Gravity Urine > 1.045 (1.000-1.030); Urobilinogen Urine Negative (Negative); pH Urine 5.5 (4.5-7.5)
[2019-11-28] MEDS ORDERED: levoFLOXacin 500 MG TAB PO SCH (11:00)
[2019-11-28 11:03] LABS: Pregnancy Test, Urine Negative (Negative)
--- NOTE | 2019-11-28 12:40 | Hospitalist Progress Note ---
Date of Service November 28, 2019 Assessment & Plan (1) DVT (deep venous thrombosis): Was sent from PCP office after doppler LE showed B/L nonocclusive DVT Starting on IV heparin drip Anticoagulant discussed with patient btw Warfarin and DOAC Pt understands the risk and complications while on anticoagulant such as bleeding She is interested in the DOAC Will start on Eliquis for now Will check with pharmacy about cost (2) Pulmonary embolism: CTA chest showed a few small bilateral subsegmental pulmonary emboli. Already on IV heparin drip, then plan to change to Eliquis Will get a baseline resting ECHO Hilar Lymphadenopathy CTA chest showed mild mediastinal and bilateral hilar lymphadenopathy. The axillary lymph nodes are also prominent. This is nonspecific and could be due to a neoplastic or inflammatory process such as sarcoidosis given the chronic interstitial thickening within the lungs. ESR and CRP mildly elevated Alk Phosphatase elevated ANN marker pending Pulm consult to eval for sarcoidosis Case discussed with Pulmonology Dr. Syed that recommended a repeat CT chest in 3 months for follow up Will need outpatient follow up with pulm B/L LE edema Redness in B/L LE extremities Possible related to DVT VS cellulitis WBC and lactic acid elevated on admission Procalcitonin normal Was on Levaquin for 7 days for possible PNA Continue Doxycycline for now Leukocytosis Possible related to blot clot VS infection WBC 16 on admission, trending down to 14K today Lactic acid elevated on admission, now wnl Continue Doxycycline Follow up urine cx and blood cx Diarrhea Stools for Cdiff negative Will add loperamide prn Tobacco abuse Counseling on smoking cessation CODE Status FULL CODE Disposition Plan to discharge home tomorrow Admission and Anticipated Discharge Date Admission Date: November 27, 2019 Subjective Pt was seen and examined Lying in bed with no distress Pt said that she feels ok She denies any chest pain, palpitation, dizziness and SOB Physical Exam Physical Exam: General- No acute distress Head- atraumatic Eyes- PERRL, EOMI, ENT- oropharynx clear Neck- supple, no JVD Lungs- clear to auscultation Heart- +tachycardia, no murmur Abdomen- normal bowel sounds, soft, nontender Extremities- no calf tenderness, +edema Neuro- alert, oriented x 3; PERRL, EOMI; no facial palsy; no dysarthria Skin- warm & dry, Mild erythema in lower extremities Results & Data Results & Data ([facility]) Vital Signs (Past 12 Hours) Vital Signs Temp Pulse Resp BP Pulse Ox 11/28/19 11:28 36.6 C 98 H 16 107/70 91 11/28/19 07:36 37.0 C 109 H 16 104/65 96 11/28/19 03:10 37 C 89 16 107/72 98 (1) DVT (deep venous thrombosis) Affected thrombotic vein of extremity: femoral Chronicity: acute DVT location: lower extremity Laterality: bilateral Qualified Code(s): I82.413 - Acute embolism and thrombosis of femoral vein, bilateral
--- NOTE | 2019-11-28 12:55 | Pulmonary Consultation ---
Date of Consultation November 28, 2019 Assessment & Plan (1) Pulmonary embolism: Impression: 44-year-old female with bilateral lower extremity edema and nonocclusive DVTs with small PEs as well as incidentally noted hilar adenopathy. The constellation of symptoms is somewhat confusing. Recommendations: 1. Mediastinal adenopathy. The patient also has axillary adenopathy. Will check LDH. This certainly could be sarcoid although her calcium is low. Angiotensin-converting enzyme level is pending. Given her need for anticoagulation with DVTs and PEs, would not recommend biopsy at this point time as the adenopathy may also be reactive. Rather would recommend follow-up CT scan in about 3 months. If her LDH is significantly high, may need a more aggressive approach. 2. PEs and DVTs: Unclear precipitant. The patient is on Depo-Provera injections. She was on a recent car ride but that does not appear to be enough to have triggered her DVT. I would consider this an unprovoked event. Consider work-up for hypercoagulable state. We will check genetic tests for now including factor V Leiden and Antithrombin gene mutation and homocysteine. Other tests will need to wait until the patient is off anticoagulation and her acute clots have resolved, likely in 4 to 6 weeks. Consultation with an outpatient field investigator may be appropriate. Okay to transition to oral anticoagulants. Given the relatively unprovoked nature, would favor 6 months of anticoagulation. She should consult with her foreclosure specialist prior to future estrogen or progesterone therapy 3. Lower extremity edema: Unclear if the patient has significant pulmonary hypertension. Recommend echocardiogram. Urinalysis did not demonstrate significant proteinuria so I think nephrotic syndrome is less likely although that would be an attractive option for tying together her hypercoagulable state. Start on Lasix 20 mg daily. Will need to follow kidney function electrolytes. 4. History of tobacco as well as smoking marijuana. Cessation recommended. Could consider outpatient pulmonary function testing. Will follow with you. (2) Bilateral edema of lower extremity: (3) Mediastinal adenopathy: History of Present Illness Attending Physician: Anisha Rasheed MD History of Present Illness Asked by hospitalist to evaluate this patient with PE and mediastinal adenopathy. History is obtained from review electronic medical record as well as discussion with the patient and the admitting hospitalist. The patient is a 44-year-old female without prior medical history. She states that about 6 weeks ago she noted lower extremity edema which became more problematic. She did travel on vacation about 5 weeks ago in a car ride. Her total time in the car was about 5hours. They did take breaks and she did get out and walk around. When she returned home she had issues with cough and shortness of breath. She was seen by her primary care provider and diagnosed with pneumonia and treated with antibiotics. She again continued to complain of lower extremity edema but was advised by her PCM that the lower extremity swelling should improve with the antimicrobial therapy. Her respiratory symptoms resolved however she continued to have issues with lower extremity edema which was problematic. She was assessed in the outpatient setting for coronavirus which was negative. At follow-up, she had a duplex of the lower extremities performed which revealed bilateral nonocclusive DVTs and the patient was directed to the emergency room. She never had chest pain, syncope or presyncope. She did have a CT scan which demonstrated small subsegmental filling defects as well as some mediastinal and hilar adenopathy. 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 She does not have any family history of clotting or bleeding disorders that she is aware of. No family history of sarcoid. She does smoke marijuana, up to 5 bowls a day. No pet exposures that she is aware of. She has not had prior CT scan performed. Allergies Allergy/AdvReac Type Severity Reaction Status Date / Time No Known Allergies Allergy Verified 11/27/19 19:22 Home Medications Home Medications Medication Instructions Recorded Confirmed Type albuterol sulfate 2 puff INHALATION Q4 PRN 11/27/19 11/27/19 History albuterol sulfate 2.5 mg INHALATION Q4 PRN 11/27/19 11/27/19 History dextromethorphan polistirex 10 ml PO Q12H PRN 11/27/19 11/27/19 History [Delsym 12 hour] guaifenesin [Mucinex] 0 mg PO DAILY PRN 11/27/19 11/27/19 History ibuprofen [Advil] 400 mg PO Q6H PRN 11/27/19 11/27/19 History levofloxacin [Levaquin] 500 mg PO DAILY 11/27/19 11/27/19 History medroxyprogesterone [Depo-Provera] 0 mg IM UD 11/27/19 11/27/19 History Patient History Medical History DVT (deep venous thrombosis) Surgical History No pertinent past surgical history Social History Preferred Language: Georgian Communication Ability: Effective [employer] Magistrate Required: No Beliefs That Will Affect Care: None Current Living Situation: Significant Other Feels Safe at Home: Yes Safety Concerns: Feels Safe At This Time Smoking Status: Current every day smoker Tobacco Type: cigarettes and cigars ; Do You Dip or Chew Tobacco: No ; Second Hand Exposure: Yes ; Tobacco Cessation Education Requested by Patient: No Hx Alcohol Use: Yes Alcohol type: hard liquor Hx Substance Use: Yes substance use type: marijuana Last Used Substance: Hours (ago) Review of Systems Review of Systems: Please refer to admission H&P. I have no changes other than noted in HPI Physical Exam Constitutional: WD/WN, vitals as above Neck: trachea midline, no thyromegaly Respiratory: normal respiratory effort, lungs clear to auscultation Cardiovascular: Rate/Rhythm: regular rate Heart Sounds: normal S1 and normal S2; no murmur Palpation: S3 nonpalpable Extremities: + edema Gastrointestinal (Abdomen): normal bowel sounds, soft, nontender, no hepatosplenomegaly Musculoskeletal: Extremities: extremities normal to inspection Skin: no rashes, warm and dry Neurologic: Nonfocal exam Lymphatic: no cervical lymphadenopathy Results & Data Results & Data ([facility]) Vital Signs (Past 12 Hours) Vital Signs Temp Pulse Resp BP Pulse Ox 11/28/19 11:28 36.6 C 98 H 16 107/70 91 11/28/19 07:36 37.0 C 109 H 16 104/65 96 11/28/19 03:10 37 C 89 16 107/72 98 Laboratory Results 11/28/19 00:56 11/28/19 00:56 Initial lactate 2.5 down to 1.6 Calcium low at 6.9 Urinalysis showed trace protein Diagnostic Findings CT of the chest was independently reviewed. Few small subsegmental filling defects consistent with pulmonary emboli were identified with a few small apical blebs. There is a subcarinal lymph node measuring 2.7 x 1.8 cm as well as bilateral axillary lymph nodes and some smaller hilar adenopathy. PG Care Time/CCT Total # of Minutes Spent Total Time Spent with Patient: Total time spent is greater than 50% in coordination of care (as documented) at patient's floor/unit and/or counseling patient: Coding Level of Care Code 38121 Inpt Consult Level 4 Diagnoses Pulmonary embolism I26.99 Bilateral edema of lower extremity R60.0 Mediastinal adenopathy R59.0 Time Spent (min) 55
[2019-11-28] MEDS ORDERED: LOPERAMIDE HCL 2 MG CAP PO PRN (13:10)
[2019-11-28] MEDS: FUROSEMIDE 20 MG TAB PO SCH (13:55)
--- NOTE | 2019-11-28 16:00 | Electrocardiogram Report ---
Test Reason : Blood Pressure : / mmHG Vent. Rate : 102 BPM Atrial Rate : 102 BPM P-R Int : 164 ms QRS Dur : 080 ms QT Int : 344 ms P-R-T Axes : 071 067 043 degrees QTc Int : 448 ms Sinus tachycardia Left atrial enlargement Low voltage QRS Cannot rule out Old Anteroseptal infarct Abnormal ECG No previous ECGs available Confirmed by Marcus Nuñez ([id number]) on 11/28/2019 3:59:46 PM Referred By: REFERRED SELF Confirmed By:Marcus Nuñez
[2019-11-28] MEDS: FAMOTIDINE 20 MG TAB PO SCH (17:10)
[2019-11-28] MEDS: HEPARIN SODIUM/DEXTROSE 25,000 UNITS/500 ML BAG IV SCH (17:52)
[2019-11-28] MEDS: APIXABAN 5 MG TABLET PO SCH (20:36)
[2019-11-29 06:16] LABS: Mean Corpuscular Hemoglobin 34.7 pg (25-34); Mean Corpuscular Hgb Conc 33.3 g/dL (32-36); Mean Platelet Volume 9.8 fL (7.4-10.4); Nucleated RBC # (auto) 0.07 K/uL (0-0); Nucleated RBC % (auto) 0.6 %; Platelet Count 271 K/uL (130-400); RDW Coefficient of Variation 14.6 % (11.5-14.5); RDW Standard Deviation 55.3 fL (36.4-46.3); Red Blood Count 3.46 M/uL (4.2-5.4); White Blood Count 12.69 K/uL (4.8-10.8)
[2019-11-29 06:39] LABS: Partial Thromboplastin Ratio 1.2
[2019-11-29 06:50] LABS: BUN Creatinine Ratio 16.6 (10-20); Blood Urea Nitrogen 6 mg/dl (7-18); Calcium 7.2 mg/dl (8.5-10.1); Carbon Dioxide 25 mmol/L (21-32); Chloride 108 mmol/L (98-107); Creatinine Clr Calc Pharmacy 171.8 ml/min; Est GFR (African American) > 150.0; Est GFR (Non-African American) 129.7; Glucose 82 mg/dl (70-99); Potassium 4.2 mmol/L (3.5-5.1); Sodium 136 mmol/L (136-145)
[2019-11-29] MEDS: DOXYCYCLINE HYCLATE 100 MG CAP PO SCH (08:12)
[2019-11-29] MEDS: FUROSEMIDE 20 MG TAB PO SCH (08:12)
[2019-11-29] MEDS: FAMOTIDINE 20 MG TAB PO SCH (08:13)
[2019-11-29] MEDS: APIXABAN 5 MG TABLET PO SCH (08:13)
[2019-11-29] MEDS ORDERED: CALCIUM CARBONATE 500 MG CHEWABLE TAB PO PRN (10:35)
--- NOTE | 2019-11-29 10:39 | Pulmonology Progress Note ---
Date of Service November 29, 2019 Assessment & Plan (1) Pulmonary embolism: Impression: 44-year-old female with bilateral lower extremity edema and nonocclusive DVTs with small PEs as well as incidentally noted hilar adenopathy. The constellation of symptoms is somewhat confusing. Recommendations: 1. Mediastinal adenopathy. The patient also has axillary adenopathy. LDH is borderline elevated. This certainly could be sarcoid although her calcium is low. Angiotensin-converting enzyme level is pending. Given her need for anticoagulation with DVTs and PEs, would not recommend biopsy at this point time as the adenopathy may also be reactive. Rather would recommend follow-up CT scan in about 3 months. 2. PEs and DVTs: Unclear precipitant. The patient is on Depo-Provera injections. She was on a recent car ride but that does not appear to be enough to have triggered her DVT. I would consider this an unprovoked event. Given the relatively unprovoked nature, would favor 6 months of anticoagulation. She should consult with her talent sourcer prior to future estrogen or progesterone therapy. Hypercoagulable work-up pending. Consultation with tool grinder operator in the outpatient setting may be appropriate. 3. Lower extremity edema: Echocardiogram reviewed. No evidence of pulmonary hypertension. She does have some protein in her urine and with her low albumin would recommend 24-hour urine for protein and consideration for nephrology consultation. This does not need to be accomplished as an inpatient. Recommend continuing Lasix at 20 mg daily with a follow-up basic metabolic panel with her PCM in the next 5 to 7 days. 4. History of tobacco as well as smoking marijuana. Cessation recommended. Could consider outpatient pulmonary function testing. The patient can be discharged from a pulmonary perspective. I would be happy to see her back in the pulmonary clinic with follow-up imaging in 3 months. (2) Bilateral edema of lower extremity: (3) Mediastinal adenopathy: Admission and Anticipated Discharge Date Admission Date: November 27, 2019 Subjective Patient does complain of some mild reflux symptoms not controlled with PPI. She states that [id number] Tums works much better for her typically. Patient was started on diuretics and per report some improvement in her lower extremity edema. No chest pain palpitations fevers chills or night sweats. She is not coughing or expectorating phlegm. No syncope or presyncope. No issues with bleeding complications associated with anticoagulation. Review of Systems Review of Systems: All systems reviewed & are unremarkable except as noted in HPI & below Physical Exam Constitutional: WD/WN, vitals as above Neck: trachea midline, no thyromegaly Respiratory: normal respiratory effort, lungs clear to auscultation Cardiovascular: Rate/Rhythm: regular rate Heart Sounds: normal S1 and nor mal S2; no murmur Palpation: S3 nonpalpable Extremities: + edema Gastrointestinal (Abdomen): normal bowel sounds, soft, nontender, no hepatosplenomegaly Musculoskeletal: Extremities: extremities normal to inspection Skin: no rashes, warm and dry Lymphatic: no cervical lymphadenopathy Results & Data Results & Data ([facility]) Vital Signs (Past 12 Hours) Vital Signs Temp Pulse Resp BP BP Pulse Ox 11/29/19 07:58 36.6 C 83 18 120/74 100 11/29/19 03:43 36.9 C 94 H 18 101/67 97 11/28/19 23:46 37.2 C 97 H 20 92/59 L 93 Laboratory Results 11/29/19 06:00 11/29/19 06:00 Hypercoagulable work-up pending. LDH slightly elevated at 300 PG Care Time/CCT Total # of Minutes Spent Total Time Spent with Patient: Total time spent is greater than 50% in coordination of care (as documented) at patient's floor/unit and/or counseling patient: Coding Level of Care Code 48793 Subseq Hosp Care Lvl 3 Diagnoses Pulmonary embolism I26.99 Bilateral edema of lower extremity R60.0 Mediastinal adenopathy R59.0
--- NOTE | 2019-11-29 14:19 | Hospitalist Progress Note ---
Date of Service November 29, 2019 Assessment & Plan (1) DVT (deep venous thrombosis): Was sent from PCP office after doppler LE showed B/L nonocclusive DVT Starting on IV heparin drip Anticoagulant discussed with patient btw Warfarin and DOAC Pt understands the risk and complications while on anticoagulant such as bleeding She is interested in the DOAC IV heparin was discontinued last night Transition to Eliquis (Pt will be able to afford it) Given the relatively unprovoked nature, would favor 6 months of anticoagulation. Hold Depo-Provera for now (Follow up with your GROCERY SPECIALIST ) (2) Pulmonary embolism: CTA chest showed a few small bilateral subsegmental pulmonary emboli. Already on IV heparin drip, then plan to change to Eliquis ECHO showed no wall motion abnormality and EF 60-65% Homocysteine and factor V Leiden pending Will need outpatient the rest of hypercoagulable work done once off the anticoagulant Consider outpatient follow up with Hematology Hilar Lymphadenopathy CTA chest showed mild mediastinal and bilateral hilar lymphadenopathy. The axillary lymph nodes are also prominent. This is nonspecific and could be due to a neoplastic or inflammatory process such as sarcoidosis given the chronic interstitial thickening within the lungs. ESR and CRP mildly elevated Alk Phosphatase and LDH elevated ANN marker pending Pulm consult to denny for sarcoidosis Case discussed with Pulmonology Dr. Syed that recommended a repeat CT chest in 3 months for follow up Will need outpatient follow up with pulm B/L LE edema Redness in B/L LE extremities Possible related to DVT VS cellulitis WBC and lactic acid elevated on admission Procalcitonin normal Was on Levaquin for 7 days for possible PNA Will complete Doxycycline course of doxy Lasix 20mg daily for now Check BMP in 1 week Leukocytosis Possible related to blot clot VS infection WBC 16 on admission, trending down to 12K today Lactic acid elevated on admission, now wnl Continue Doxycycline Urine cx and blood cx no growth Diarrhea Stools for Cdiff negative Loperamide prn Resolved Tobacco abuse Counseling on smoking cessation CODE Status FULL CODE Disposition Plan to discharge home today Admission and Anticipated Discharge Date Admission Date: November 27, 2019 Subjective Pt was seen and examined Lying in bed with no distress Pt said that her breathing is stable She said that her fingers were cold and tender She said that she does not have any more diarrhea Denies any chest pain, palpitation, dizziness and SOB Physical Exam Physical Exam: General- No acute distress Head- atraumatic Eyes- PERRL, EOMI, ENT- oropharynx clear Neck- supple, no JVD Lungs- clear to auscultation Heart- +tachycardia, no murmur Abdomen- normal bowel sounds, soft, nontender Extremities- no calf tenderness, +edema Neuro- alert, oriented x 3; PERRL, EOMI; no facial palsy; no dysarthria Skin- warm & dry, Mild erythema in lower extremities Results & Data Results & Data ([facility]) Vital Signs (Past 12 Hours) Vital Signs Temp Pulse Resp BP BP Pulse Ox 11/29/19 11:50 36.8 C 100 H 20 110/65 98 11/29/19 07:58 36.6 C 83 18 120/74 100 11/29/19 03:43 36.9 C 94 H 18 101/67 97 (1) DVT (deep venous thrombosis) Affected thrombotic vein of extremity: femoral Chronicity: acute DVT location: lower extremity Laterality: bilateral Qualified Code(s): I82.413 - Acute embolism and thrombosis of femoral vein, bilateral
--- NOTE | 2019-11-30 08:30 | Discharge Summary ---
Date of Service November 29, 2019 Admission HPI Per Admitting Provider History obtained from patient and records. Medical history significant for ongoing tobacco abuse. Last month, patient traveled by car to [place] from [place] ([address] as per patient). Junky cough symptoms at time of departure which patient attributed to allergies. No chest pain, no S OB. 3 weeks ago after returning home from her trip, patient noted bilateral leg swelling and exertional shortness of breath. No chest pain. Persistent cough symptoms with fever at home. No aspiration. No unusual abdominal pain. Patient seen at [facility] urgent care center last week. Right upper lung field crackles noted on exam as per note. COVID-19 testing was negative. Chest x-ray not done outpatient. Levaquin course started for possible pneumonia. Cough symptoms improving as per patient. Bilateral leg swelling noted to be worse with redness more on the right. Patient seen on follow-up at outpatient [facility] facility today. Outpatient LE venous Dopplers read as bilateral nonocclusive DVTs. Patient directed to the ER by outpatient provider. IV heparin started at the ER. No prior history of blood clots as per patient. Medical History as above Surgical History : Dental surgery Family History : blood clots, lung cancer, throat cancer Personal/Social history : Half pack daily, no EtOH intake, cook pie Admission Exam Per Admitting Provider GENERAL: Slightly uncomfortable, no respiratory distress, slightly anxious SKIN: Normal color, warm HEENT: [place] palpebral conjunctivae, no ptosis, dry buccal mucosa NECK : Supple, no tenderness CHEST : Decreased breath sounds, occasional wheeze right lower lobe which clear on coughing. no tenderness HEART : Tachycardic, no obvious murmurs ABDOMEN: Some distention, nontender EXTREMITIES : Bilateral LE swelling and tenderness, RLE greater than LLE erythema, no other conspicuous deformities noted NEUROLOGIC : Coherent, no facial asymmetry, no other gross focality Principal Diagnosis DVT (deep venous thrombosis): Pulmonary embolism: Hilar Lymphadenopathy Lower extremities swelling Leukocytosis Diarrhea Tobacco abuse Discharge Exam General- No acute distress Head- atraumatic Eyes- PERRL, EOMI, ENT- oropharynx clear Neck- supple, no JVD Lungs- clear to auscultation Heart- +tachycardia, no murmur Abdomen- normal bowel sounds, soft, nontender Extremities- no calf tenderness, +edema Neuro- alert, oriented x 3; PERRL, EOMI; no facial palsy; no dysarthria Skin- warm & dry, Mild erythema in lower extremities Discharge Data Allergies Allergy/AdvReac Type Severity Reaction Status Date / Time No Known Allergies Allergy Verified 11/27/19 19:22 Consultations 11/27/19 20:06 ED Decision to Admit Stat 11/28/19 10:19 Consult Pulmonology Routine Ordered Studies 11/27/19 20:12 CT angio chest PE protocol Urgent XR chest 1V portable CLINICAL HISTORY: weakness COMPARISON STUDY: No previous studies for comparison. FINDINGS: Lung volumes are normal. There is no pneumothorax or pleural effusion. There are suspected small calcified nodules within the lungs. In addition, there is lower lung interstitial thickening and hazy airspace opacity. There is no lobar consolidation. Cardiac size is normal. Mediastinal contours are unremarkable. IMPRESSION: Lower lung interstitial thickening and possible associated hazy opacities. The findings are age indeterminate and could reflect an infectious process or less likely pulmonary edema or interstitial lung disease. Radiographic follow up is recommended. ACT 112: Negative or not required by law. Electronically signed by: Yuriy Morton M.D. 11/27/2019 6:52 PM Dictated: 11/27/191849 Transcribed: 11/27/191849 CHEST CTA for PULMONARY ARTERIES CT DOSE: 239.05 mGy.cm HISTORY: Shortness of breath. TECHNIQUE: Multiaxial CT images of the chest were performed following the intravenous administration of contrast to evaluate the pulmonary arteries. Maximal intensity projection images were also obtained. A dose lowering t echnique was utilized adhering to the principles of ALARA. COMPARISON STUDY: None. FINDINGS: Normal caliber thoracic aorta with no evidence for dissection. The heart is normal in size. Trace pericardial and trace left pleural effusions. A few small scattered filling defects seen within the bilateral lower lobe subsegmental pulmonary arteries. This is best seen within the right lower lobe on image 82. Findings are consistent with small pulmonary emboli. No suspicious lytic or blastic osseous lesions. The liver and spleen appear enlarged but are only partially imaged on this study. The adrenal glands are unremarkable. Normal caliber esophagus. Prominent bilateral axillary lymph nodes. Mild mediastinal and bilateral hilar lymphadenopathy. Dominant subcarinal lymph node measures 2.7 x 1.8 cm. No pneumothorax. A few small biapical blebs are noted. Calcified granuloma within the lingula. Mild central bronchial wall thickening. There is also mild diffuse interstitial thickening. Mild diffuse groundglass appearance to the lungs. IMPRESSION: 1. A few small bilateral subsegmental pulmonary emboli. 2. Mild mediastinal and bilateral hilar lymphadenopathy. The axillary lymph nodes are also prominent. This is nonspecific and could be due to a neoplastic or inflammatory process such as sarcoidosis given the chronic interstitial thickening within the lungs. 3. Mild diffuse interstitial thickening with faint groundglass appearance within the lungs. Again, this could be due to sarcoidosis or a low-grade infectious/inflammatory process. 4. Findings were called/faxed to the referring physician following dictation. ACT 112: Negative or not required by law. Electronically signed by: Brice Wagner M.D. 11/28/2019 8:01 AM Dictated: 11/28/19752 Transcribed: 11/28/19752 Hospital Course (1) DVT (deep venous thrombosis): Was sent from PCP office after doppler LE showed B/L nonocclusive DVT Starting on IV heparin drip Anticoagulant discussed with patient btw Warfarin and DOAC Pt understands the risk and complications while on anticoagulant such as bleeding She is interested in the DOAC IV heparin was discontinued last night Transition to Eliquis (Pt will be able to afford it) Given the relatively unprovoked nature, would favor 6 months of anticoagulation. Hold Depo-Provera for now (Follow up with your SKIN PEELING MACHINE OPERATOR ) (2) Pulmonary embolism: CTA chest showed a few small bilateral subsegmental pulmonary emboli. Already on IV heparin drip, then plan to change to Eliquis ECHO showed no wall motion abnormality and EF 60-65% Homocysteine and factor V Leiden pending Will need outpatient the rest of hypercoagulable work done once off the anticoagulant Consider outpatient follow up with Hematology Hilar Lymphadenopathy CTA chest showed mild mediastinal and bilateral hilar lymphadenopathy. The axillary lymph nodes are also prominent. This is nonspecific and could be due to a neoplastic or inflammatory process such as sarcoidosis given the chronic interstitial thickening within the lungs. ESR and CRP mildly elevated Alk Phosphatase and LDH elevated ANN marker pending Pulm consult to denny for sarcoidosis Case discussed with Pulmonology Dr. Syed that recommended a repeat CT chest in 3 months for follow up Will need outpatient follow up with pulm B/L LE edema Redness in B/L LE extremities Possible related to DVT VS cellulitis WBC and lactic acid elevated on admission Procalcitonin normal Was on Levaquin for 7 days for possible PNA Will complete Doxycycline course of doxy Lasix 20mg daily for now Check BMP in 1 week Leukocytosis Possible related to blot clot VS infection WBC 16 on admission, trending down to 12K today Lactic acid elevated on admission, now wnl Continue Doxycycline Urine cx and blood cx no growth Diarrhea Stools for Cdiff negative Loperamide prn Resolved Tobacco abuse Counseling on smoking cessation CODE Status FULL CODE Disposition Plan to discharge home today Total Time Total Time Spent Total Time Spent (In Minutes): 35 minutes Total Time Includes: Examination of the Patient, Discharge Planning, Medication Reconciliation, Communication With Other Providers and Other Discharge Plan Discharge Items Patient Disposition: Home - Self-Care Reason For Visit: SEPSIS, SOB Discharge Diagnosis: DVT (deep venous thrombosis): Pulmonary embolism: Hilar Lymphadenopathy Lower extremities swelling Leukocytosis Diarrhea Tobacco abuse Activity: Resume your previous activity Non-emergency contact: Primary Care Provider and Lieutenant Colonel Call non-emergency contact if: you have any medication questions and your symptoms worsen Follow-up/Referrals: PCP,JARED [Primary Care Provider] - Diet: Regular Addtl Attending Provider Instructions: Follow up with your primary care provider within 1 week (Please call to schedule for the follow up appointment) Follow up with pulmonology to continue monitor lymphadenopathy (Your physician will refer you ) You will need a repeat CT chest in 3 months to monitor the enlarge lymph nodes seeing on the previous CT chest Check BMP in 1 week to monitor your electrolytes and kidney function since starting on Lasix Monitor closely for any abnormal bleeding (Such as blood in your stool and urine) Avoid any NSAID (Ibuprofen, Motrin, Naproxen, Advil, Aleve, ...) while on Eliquis due to increase risk of bleeding Fall precaution Complete the course for the doxycycline Continue Eliquis twice a day for 6 months Your physician will review with you the result for the Homocysteine and Factor V Leiden ( they are markers for blood clots) Medication Instructions:Eliquis Your condition is typically treated with an anticoagulant. Anticoagulants will thin your blood to help prevent new clots. You should take her medication exactly as directed. Never skip a dose. Never take a double dose. If you miss a dose, take it as soon as you remember. Avoid NSAIDs (Motrin, Aleve, Naproxen, Ibuprofen, Advil, Meloxicam,..) due to risks of bleeding Call your Primary Care doctor if you experience any of the following: Swelling or Pain in your leg Sudden, continuous pain deep in a muscle Pain that worsens when you are active or when you stand still for a long time Chest Pain Sudden Shortness of Breath Rapid or pounding heart beat Fainting Dizziness Cough with blood or bloody sputum Sweating more than normal Bruises Heavy or uncontrolled bleeding Blood in your urine, stool or vomit Black or tarry stools Caring for Your Self at Home: Avoid sitting, standing or lying down for long periods without moving your legs and feet When traveling by car, stop to get out and move around at least once every 3 hours On long airplane, train or bus rides, get up and move around when possible If you can't get up, wiggle your toes and tighten your calves to keep your blood moving Follow Up: It is important for you to keep your follow up appointments with your medical provider. Pending Studies at Discharge: Yes Studies:: Homocysteine and Factor V Leiden Stand-Alone Forms: My [facility]ITAL, Smoking Cessation Medications and DC Order Prescriptions: New doxycycline hyclate 100 mg Capsule 100 mg PO BID 3 Days Qty: 6 RF: 0 famotidine 20 mg Tablet 20 mg PO QAM 30 Days Qty: 30 RF: 0 furosemide 20 mg Tablet 20 mg PO QAM 20 Days Qty: 20 RF: 0 Eliquis 5 mg (74 tabs) tablets,dose pack 5 mg PO UD Qty: 74 RF: 0 Continued albuterol sulfate 2.5 mg /3 mL (0.083 %) solution for nebulization 2.5 mg inhalation Q4 PRN (Reason: Shortness Of Breath) RF: 0 albuterol sulfate 90 mcg/actuation HFA aerosol inhaler 2 puff INHALATION Q4 PRN (Reason: Shortness Of Breath Or Wheezing) RF: 0 dextromethorphan polistirex [Delsym 12 hour] 30 mg/5 mL Suspension,Extended Rel 12 Hr 10 ml PO Q12H PRN (Reason: Cough) RF: 0 guaifenesin [Mucinex] 600 mg Tablet Extended Release 12hr 0 mg PO DAILY PRN (Reason: Congestion) RF: 0 Discontinued levofloxacin [Levaquin] 500 mg tablet 500 mg PO DAILY RF: 0 medroxyprogesterone [Depo-Provera] 150 mg/mL suspension 0 mg IM UD RF: 0 ibuprofen [Advil] 200 mg Tablet 400 mg PO Q6H PRN (Reason: Pain) RF: 0 Discharge Orders: Discharge Order (Routine); Ordered 11/29/19 Ordered By: Anisha Rasheed Admission Data Admit Date/Time: 11/27/19 20:20 Attending Provider: Anisha Rasheed Admit Provider: Kyle Arguello Primary Care Provider: PCP,NO Other Providers: Kyle Arguello ; Hany Syed Other Interventions: Discharge Summary Assessment (RN) Last Done: 11/29/19 14:57 DC Date/Time DO NOT enter until pt leaves facility: 11/29/19 15:32
== END 2019-11-29 15:32 | disposition home or self-care (01) | DRG 871 ==
LOC: ED 17:42 → 2N 20:20